=== PATIENT | female | born 1980 | race Caucasian/White ===

== ENCOUNTER → 2025-03-23 | Day surgery (SDC) | payer MEDICARE, OTHER ==
--- NOTE | 2025-03-28 13:47 | USB ---
Risk Values: Sunshine 5 year model risk: 0.5%. NCI Lifetime model risk: 6.4%. Pathology Description: Location: axilla. Marker Left Behind. Needle Type: Celero Cores: 2 Gauge: 12 The procedure of ultrasound guided core biopsy was explained to the patient. Benefits, alternatives, and risks were discussed. An informed consent was then obtained. The patient was placed in supine positioning for imaging and for the procedure. The overlying skin was prepped and draped in usual sterile fashion. Lidocaine buffered with bicarbonate was used as anesthetic into the skin and subcutaneous tissue up to area of concern abnormal left axillary lymph nodes. Under ultrasound guidance, a 12-gauge vacuum assisted biopsy gun device was used to obtain 2 core samples. Following this, a biopsy clip was left in lesion. The patient tolerated the procedure well without any immediate complication. The patient was kept in the radiology department for short stay after the procedure and then discharged home in stable condition. Postprocedure mammogram: The patient was transferred to mammography for physician ordered post procedure mammogram for clip placement verification. Post procedure mammogram demonstrates the clip in appropriate placement. Impression: Successful, uncomplicated ultrasound guided core biopsy of area of concern in the left axillary lymph node. Full pathology results to follow. [facility], , 03/23/2025 11:07 AM. Pathology Results: Result: Benign. Pathology and radiology were reviewed. Findings are concordant. LEFT AXILLA, ULTRASOUND GUIDED CORE BIOPSY: Core fragments of reactive lymphoid tissue. Negative for metastatic carcinoma. CK7 and DARY stains, both performed with appropriate controls, both negative for metastatic carcinoma. Overall Assessment: Benign Management: Diagnostic Breast Ultrasound of the left breast in 6 months. Electronically signed and approved by: Dann Jara M.D. Radiologis
== END ==
LOC: RADUSWWP 09:43
PROVIDERS: ATTEND Surgery
DX: R92.8 Other abnormal and inconclusive findings on diagnostic imaging of breast (principal)
CPT/HCPCS: 88305; 88342; 88341; 19083; 38505; A4648

== ENCOUNTER → 2025-04-01 | Outpatient (CLI) | payer MEDICARE ==
[2025-04-01 15:16] VITALS: BP 108/70; PULSE 86; RESP 18; TEMP 97.9
--- NOTE | 2025-04-01 16:10 | P.GSCN ---
History of Present Illness Consult date: 04/01/25 Reason for Consult: left axillary adenopathy History of present illness: Adela is a 44 year old female seen in consultation for Dr. Hunt regarding an enlarged left axillary node. She had a bilateral mammogram on 02-03-25 which was personally reviewed and discussed with Dr. Ramirez from radiology. This was BIRAD 0 and a left breast ultrasound was recommended. This was done on 02-14-25 showing abnormal left axillary nodes. Biopsy was done on 03-23-25 which was reactive cody tissue, negative for malignancy. This was found on a routine mammogram. She does not feel anything of concern. She tolerated the biopsy well. She has not had any surgery on her breast in the past. She is not complaining of any nipple discharge or skin changes. She has not had any recent trauma or infection in her breast. Se does have fungal infections under her breast when she sweats. Caffeine: none nicotine: none chocolate: occasional BCP: none hormone: none Family History: unknown Hormonal History: menarche: 12 G0 periods regular, LMP March Surgical history: none Medical hIstory: none Social history: nicotine: none alcohol: occasional drugs:none Review of Systems - Constitutional Denies fever, Denies weight loss - EENT Eyes: denies blurred vision Ears: deny: decreased hearing, tinnitus Ears, nose, mouth and throat: Denies dysphagia - Breasts bilateral: as per HPI - Cardiovascular Denies chest pain, Denies shortness of breath - Respiratory Denies cough, Denies 7 - Gastrointestinal Reports as per HPI - Genitourinary Genitourinary: Denies dysuria, Denies hematuria - Musculoskeletal Musculoskeleta Comment(s): left knee pain Reports as per HPI - Integumentary Reports as per HPI, Denies rash, Denies unusual bruising - Neurological Denies headaches, Denies syncope - Psychiatric Reports as per HPI - Endocrine Reports as per HPI - Hematologic/Lymphatic Denies easy bleeding, Denies easy bruising - Allergic/Immunologic Reports as per HPI, Reports seasonal allergies Past Medical History Past Medical History: No Reported History History of Any Multi-Drug Resistant Organisms: None Reported Past Surgical History: No Surgical Hx Reported Past Anesthesia/Blood Transfusion Reactions: Unable to Obtain Past Psychological History: No Psychological Hx Reported Smoking Status: Never smoker Past Alcohol Use History: Rare Past Drug Use History: None Reported Medications and Allergies Home Medications Medication Instructions Recorded Confirmed Type Cetirizine HCl 10 mg PO DAILY 02/25/25 04/01/25 History Cholecalciferol (Vitamin D3) 250 mcg PO DAILY 02/25/25 04/01/25 History [Vitamin D3 (125 MCG = 5,000 IU)] Diclofenac Sodium Gel [Voltaren 1% 2 gm TOPICAL QID 02/25/25 04/01/25 History Gel] Fluticasone Nasal [place] [Flonase 1 spray EA NOSTRIL DAILY 02/25/25 04/01/25 History Nasal [place]] Nystatin 100,000Unit/gm Cream 1 applic TOPICAL BID 02/25/25 04/01/25 History [Mycostatin Cream] Vitamin B Complex 2 each PO DAILY 02/25/25 04/01/25 History Allergies Allergy/AdvReac Type Severity Reaction Status Date / Time No Known Allergies Allergy Verified 04/01/25 15:14 Surgical - Exam Vital Signs Temp Pulse Resp BP Pulse Ox 97.9 F 86 18 108/70 99 04/01/25 15:14 04/01/25 15:14 04/01/25 15:14 04/01/25 15:14 04/01/25 15:14 - General no distress - Eyes normal ocular movement - ENT no hearing loss - Neck trachea midline - Respiratory normal respiratory effort, clear to auscultation - Cardiovascular Rhythm: regular Heart Sounds: normal: S1, S2 - Abdomen Abdomen: soft, non tender, no guarding, no rigid, no rebound - Integumentary normal turgor - Neurologic no disoriented, no combative - Musculoskeletal normal gait - Psychiatric oriented to time, oriented to person, oriented to place, speech is normal, memory intact Breast Exam: does not wear a bra/ XXL inspection: Macromastia, bilateral grade 3 ptosis, bilateral fungal infection extensive under the breast and extending onto the abdominal wall Palpation: Right breast: Multi positional exam no dominant masses or nodules of concern Right axilla: No adenopathy of concern Left breast: Multi positional exam no dominant masses or nodules of concern Left axilla: Adenopathy consistent with that which was biopsied Results Bilateral mammogram and left breast ultrasound core biopsy of axillary lymph node reviewed with radiology felt to be benign concordant pathology benign lymphoid tissue Assessment and Plan Assessment: Impression: Macromastia with fungal infection bilateral breast Left axillary adenopathy benign Plan: Nystatin Consider appointment with dermatology Follow-up in 1 month Repeat left breast axillary ultrasound in [address] Ellison
== END ==
LOC: WWCWWP 14:50
PROVIDERS: ATTEND Surgery
DX: N62 Hypertrophy of breast (principal); B37.89 Other sites of candidiasis; R59.0 Localized enlarged lymph nodes

== ENCOUNTER → 2025-06-24 | Outpatient (CLI) | payer MEDICARE ==
[2025-06-24 14:58] VITALS: BP 108/73; PULSE 76; RESP 17; TEMP 98.9
--- NOTE | 2025-06-24 15:25 | P.PN ---
Subjective Progress Note Date: 06/24/25 Principal diagnosis: Symptomatic macromastia with bilateral fungal infection rash under breast 04-28-25 History of Present Illness Consult date: 04/01/25 Reason for Consult: left axillary adenopathy History of present illness: Adela is a 44 year old female seen in consultation for Dr. Hunt regarding an enlarged left axillary node. She had a bilateral mammogram on 02-03-25 which was personally reviewed and discussed with Dr. Ramirez from radiology. This was BIRAD 0 and a left breast ultrasound was recommended. This was done on 02-14-25 showing abnormal left axillary nodes. Biopsy was done on 03-23-25 which was reactive cody tissue, negative for malignancy. This was found on a routine mammogram. She does not feel anything of concern. She tolerated the biopsy well. She has not had any surgery on her breast in the past. She is not complaining of any nipple discharge or skin changes. She has not had any recent trauma or infection in her breast. Se does have fungal infections under her breast when she sweats. I have discussed her case with Dr. Sims from infectious disease. She is going to be put on Diflucan 200 mg 1 a day for 10 days and nystatin powder. The patient is informed and she will follow-up in 2 weeks. 04-28-25 The patient did take the Diflucan and is using the nystatin powder. The rash is improved at this time she is doing well without complaints. 06-24-25 Adela comes to evaluate her fungal infection. She used the difulcan and the powder and the rash resolved. She states that the infection cleared up but then came back again in the summer heat. She is not complaining of any lumps masses or nodules of concern in either breast. She is not complaining of any axillary adenopathy. She did not follow-up with infectious disease. She would like to have a bilateral breast reduction. Caffeine: none nicotine: none chocolate: occasional BCP: none hormone: none much improved. Family History: unknown Hormonal History: menarche: 12 G0 periods regular, LMP March Surgical history: none Medical hIstory: none Social history: nicotine: none alcohol: occasional drugs:none Review of Systems - Constitutional Denies fever, Denies weight loss - EENT Eyes: denies blurred vision Ears: deny: decreased hearing, tinnitus Ears, nose, mouth and throat: Denies dysphagia - Breasts bilateral: as per HPI - Cardiovascular Denies chest pain, Denies shortness of breath - Respiratory Denies cough, Denies 7 - Gastrointestinal Reports as per HPI - Genitourinary Genitourinary: Denies dysuria, Denies hematuria - Musculoskeletal Musculoskeleta Comment(s): left knee pain Reports as per HPI - Integumentary Reports as per HPI, Denies rash, Denies unusual bruising - Neurological Denies headaches, Denies syncope - Psychiatric Reports as per HPI - Endocrine Reports as per HPI - Hematologic/Lymphatic Denies easy bleeding, Denies easy bruising - Allergic/Immunologic Reports as per HPI, Reports seasonal allergies Past Medical History Past Medical History: No Reported History History of Any Multi-Drug Resistant Organisms: None Reported Past Surgical History: No Surgical Hx Reported Past Anesthesia/Blood Transfusion Reactions: Unable to Obtain Past Psychological History: No Psychological Hx Reported Smoking Status: Never smoker Past Alcohol Use History: Rare Past Drug Use History: None Reported Medications and Allergies Home Medications Medication Instructions Recorded Confirmed Type Cetirizine HCl 10 mg PO DAILY 02/25/25 04/01/25 History Cholecalciferol (Vitamin D3) 250 mcg PO DAILY 02/25/25 04/01/25 History [Vitamin D3 (125 MCG = 5,000 IU)] Diclofenac Sodium Gel [Voltaren 1% 2 gm TOPICAL QID 02/25/25 04/01/25 History Gel] Fluticasone Nasal [place] [Flonase 1 spray EA NOSTRIL DAILY 02/25/25 04/01/25 History Nasal [place]] Nystatin 100,000Unit/gm Cream 1 applic TOPICAL BID 02/25/25 04/01/25 History [Mycostatin Cream] Vitamin B Complex 2 each PO DAILY 02/25/25 04/01/25 History Allergies Allergy/AdvReac Type Severity Reaction Status Date / Time No Known Allergies Allergy Verified 04/01/25 15:14 Objective - Vital Signs Vital signs: Vital Signs Temp 98.9 F 06/24/25 14:56 Pulse 76 06/24/25 14:56 Resp 17 06/24/25 14:56 BP 108/73 06/24/25 14:56 Pulse Ox 98 06/24/25 14:56 FiO2 Intake & Output 07/24/25 07/25/25 07/25/25 18:59 06:59 18:59 Weight 86.183 kg - Constitutional General appearance: Present: cooperative - EENT Eyes: Present: EOMI ENT: Present: hearing grossly normal - Neck Neck: Present: normal ROM - Respiratory Respiratory: bilateral: CTA - Cardiovascular Rhythm: regular Heart sounds: normal: S1, S2 - Musculoskeletal Musculoskeletal: Present: gait normal - Psychiatric Psychiatric: Present: A&O x's 3, appropriate affect, intact judgment & insight - Additional findings Additional findings: Breast Exam: from 04-01-25 does not wear a bra/ XXL inspection: Macromastia, bilateral grade 3 ptosis, bilateral fungal infection extensive under the breast and extending onto the abdominal wall Palpation: Right breast: Multi positional exam no dominant masses or nodules of concern Right axilla: No adenopathy of concern Left breast: Multi positional exam no dominant masses or nodules of concern Left axilla: No adenopathy of concern Exam from 04-28-25 fungal infection much improved under both breast and between the breast with extension onto the abdominal wall; exam 06-24-25 fungal infection improved however it is very prominent under the right breast and extending onto the abdominal wall Assessment and Plan Assessment: Impression: Macromastia with fungal infection bilateral breast; recurrent Left axillary adenopathy benign Plan: Nystatin Diflucan Follow-up in 1 month left breast axillary ultrasound in 6 months with appointment The patient would like to have bilateral reduction mammoplasty, she does not want to see a plastic surgeon Dr. Ellison
== END ==
LOC: WWCWWP 14:48
PROVIDERS: ATTEND Surgery
DX: N62 Hypertrophy of breast (principal); B37.9 Candidiasis, unspecified; R59.0 Localized enlarged lymph nodes